=== PATIENT | female | born 1975 | race Caucasian/White ===

== ENCOUNTER 2019-08-26 17:28 | Emergency (ER) | payer OTHER ==
[~2019-08-26] VITALS: Ht 157.5 cm; Wt 54.4 kg
[2019-08-26 17:46] LABS: URINE BILIRUBIN NEGATIVE (Negative); URINE BLOOD NEGATIVE (Negative); URINE CLARITY CLEAR; URINE COLOR YELLOW; URINE GLUCOSE-RANDOM* NEGATIVE (Negative); URINE KETONES NEGATIVE (Negative); URINE LEUKOCYTES-REFLEX NEGATIVE (Negative); URINE NITRITE-REFLEX NEGATIVE (Negative); URINE PROTEIN (DIPSTICK) NEGATIVE (Negative); URINE SPECIFIC GRAVITY 1.015 (1.005-1.035); URINE UROBILINOGEN 0.2 E.U./dl (0.2-1.0)
[2019-08-26 18:35] VITALS: BP 119/72
== END 2019-08-26 18:33 | disposition home or self-care (01) ==
LOC: ER 17:28
PROVIDERS: Physician Assistant
DX: Z20.2 Contact with and (suspected) exposure to infections with a predominantly sexual mode of transmission (principal)

== ENCOUNTER 2019-09-23 18:21 | Emergency (ER) | payer OTHER ==
[~2019-09-23] VITALS: Ht 157.5 cm; Wt 53.5 kg
[2019-09-23 18:39] VITALS: BP 121/54
== END 2019-09-23 19:50 | disposition home or self-care (01) ==
LOC: ER 18:21
DX: R50.9 Fever, unspecified (principal); M54.9 Dorsalgia, unspecified; R10.30 Lower abdominal pain, unspecified; R63.0 Anorexia; M54.5 Low back pain; R19.7 Diarrhea, unspecified; R35.0 Frequency of micturition

== ENCOUNTER 2019-12-31 12:56 | Emergency (ER) | payer OTHER ==
[~2019-12-31] VITALS: Ht 157.5 cm; Wt 53.5 kg
[2019-12-31] MEDS ORDERED: FLAGYL500 M1 PO (13:53)
[2019-12-31 15:21] VITALS: BP 115/71
== END 2019-12-31 15:23 | disposition home or self-care (01) ==
LOC: ER 12:56
DX: N76.0 Acute vaginitis (principal); B96.89 Other specified bacterial agents as the cause of diseases classified elsewhere